=== PATIENT | female | born 1980 | race Asian ===

== ENCOUNTER 2018-04-20 07:24 | Day surgery (SDC) | payer OTHER ==
[2018-04-15 12:58] VITALS: BMI 21.5
[2018-04-20] MEDS ORDERED: BUPIVACAINE HCL 0.25% 125 MG/50 ML VIAL ONE (08:38)
[2018-04-20] MEDS ORDERED: PROPOFOL 20 ML ONE (08:49)
[2018-04-20] MEDS ORDERED: MIDAZOLAM HCL 2 MG/2 ML SINGLE DOSE VIAL ONE (08:49)
[2018-04-20] MEDS ORDERED: SUCCINYLCHOLINE CHLORIDE 200 MG/10 ML VIAL ONE (08:49)
[2018-04-20] MEDS ORDERED: LIDOCAINE HCL 2% (50ML VIAL) INF ONE (09:00)
[2018-04-20 09:43] VITALS: TEMP 98.1
[2018-04-20 11:56] VITALS: BP 124/71; PULSE 61
--- NOTE | 2018-04-21 16:47 | OP ---
DATE OF OPERATION: 04/20/2018 PREOPERATIVE DIAGNOSIS: Left de Quervain tenosynovitis. POSTOPERATIVE DIAGNOSIS: Left de Quervain tenosynovitis. OPERATIVE PROCEDURE: Left de Quervain release. SURGEON: Jordan Mcdonald MD ANESTHESIA: Local with sedation. COMPLICATIONS: None. ESTIMATED BLOOD LOSS: Minimal. INDICATION FOR PROCEDURE: The patient is a 37-year-old female with the above finding, indicated for operative treatment. Risks, benefits, and alternatives were discussed with the patient at length. Proper informed consent was obtained. PROCEDURE: After proper identification of the patient and correct operative site, patient was brought to the operating room, placed on the operating table. Prominences were well padded. Sedation was given. Local anesthesia was given. Timeout procedure was performed. Left upper extremity was prepped and draped in usual sterile fashion. A well-padded tourniquet was placed as well as a sterile prep. Esmarch bandage to exsanguinate the left upper extremity. Tourniquet was inflated to 250 mmHg. Transverse incision was made over the 1st dorsal compartment. Incision was taken sharply through the skin with blunt and sharp dissection through the subcutaneous tissues, carefully protecting the neurovascular structures in the area. First dorsal compartment was identified and divided along its dorsal border. Significant stenosis of this compartment was noted, and a separate subcompartment was noted, too. This was also released and found to have significant stenosis. At this point, no further subcompartments were noted. The wrist was taken through a range of motion and no subluxation occurred and no further impingement was occurring on the tendons. Wound was irrigated with saline and repaired with a 4-0 Monocryl suture. Steri-Strips and sterile dressings were applied. Patient was reversed from anesthesia and brought to Recovery in stable condition. She tolerated the procedure well. JORDAN MCDONALD M.D. [id number]
== END 2018-04-20 10:20 | disposition home or self-care (01) ==
LOC: FASU 07:24
PROVIDERS: ATTEND Orthopaedic Surgery Hand Surgery
PROC: 0LN60ZZ Release Left Lower Arm and Wrist Tendon, Open Approach (ICD-10-PCS; principal; 2018-04-20 08:30)
DX: M65.4 Radial styloid tenosynovitis [de Quervain] (principal)
CPT/HCPCS: 84703